=== PATIENT | male | born 1970 | race Caucasian/White ===

== ENCOUNTER 2016-05-16 18:32 | Emergency (ER) | payer SELFPAY ==
[~2016-05-16] VITALS: Ht 177.8 cm; Wt 95.3 kg
[~2016-05-16 18:32] MED LIST: NAPR500T8 PO
[2016-05-16 19:01] VITALS: BP 110/71
[2016-05-16] MEDS ORDERED: TRAMADOL 50 MG TABLET. PO ONE (19:30)
--- NOTE | 2016-05-16 19:34 | PHYS DOC ---
Past Medical History Past Medical History: No Pertinent History Past Surgical History: Appendectomy, Other Additional Past Surgical Histo: finger sx, wisdom teeth, childhood neck injury Alcohol Use: None Drug Use: None Adult General Chief Complaint Chief Complaint: LOWER EXT PAIN HPI HPI Patient is a 46 year old male presents emergency department stating that he is having right knee pain since Friday. He denies any injury or trauma. He denies twisting or turning. He states that he has increased pain about the kneecap. He denies any numbness or tingling down into his feet. He states that he has increased pain with ambulation. He has taken 2 ibuprofen for the pain and discomfort. Review of Systems Review of Systems Constitutional: Denies fever or chills [] Eyes: Denies change in visual acuity, redness, or eye pain [] HENT: Denies nasal congestion or sore throat [] Respiratory: Denies cough or shortness of breath [] Cardiovascular: No additional information not addressed in HPI [] GI: Denies abdominal pain, nausea, vomiting, bloody stools or diarrhea [] : Denies dysuria or hematuria [] Musculoskeletal: Denies back pain. C/o right knee pain and discomfort Integument: Denies rash or skin lesions [] Neurologic: Denies headache, focal weakness or sensory changes [] Current Medications Current Medications Current Medications Medications (Trade) Dose Ordered Sig/Gab Start Time Stop Time Status Last Admin Dose Admin Tramadol HCl (Ultram) 50 mg 1X ONCE 05/16/16 19:30 05/16/16 19:32 DC 05/16/16 20:04 50 MG Allergies Allergies Allergies Coded Allergies Type Severity Reaction Last Updated Verified hydromorphone Allergy Intermediate 06/15/14 Yes vancomycin Allergy Intermediate Rash 05/31/14 Yes Physical Exam Physical Exam Constitutional: Well developed, well nourished, no acute distress, non-toxic appearance. [] HENT: Normocephalic, atraumatic, bilateral external ears normal, oropharynx moist, no oral exudates, nose normal. [] Eyes: PERRLA, EOMI, conjunctiva normal, no discharge. [] Neck: Normal range of motion, no tenderness, supple, no stridor. [] Cardiovascular:Heart rate regular rhythm, no murmur [] Lungs & Thorax: Bilateral breath sounds clear to auscultation [] Skin: Warm, dry, no erythema, no rash. [] Back: No tenderness Extremities: right upper knee tenderness, no cyanosis, no clubbing, ROM intact, no edema. No redness no swelling noted. Tenderness was noted around the upper part of the kneecap. Peripheral pulses are 2+. Negative Homans sign negative Rian sign negative valgus negative Alexander. Patient with slightly decreased range of motion. Patient unable to bend knee to a 90 degree angle Neurologic: Alert and oriented X 3, normal motor function, normal sensory function, no focal deficits noted. [] Psychologic: Affect normal, judgement normal, mood normal. [] Current Patient Data Vital Signs Vital Signs Date Time Temp Pulse Resp B/P Pulse Ox O2 Delivery O2 Flow Rate FiO2 05/16/16 19:01 98.2 77 18 97 Room Air 98.2 EKG EKG [] Radiology/Procedures Radiology/Procedures [] Course & Med Decision Making Course & Med Decision Making Pertinent Labs and Imaging studies reviewed. (See chart for details) X-rays were negative for any bony abnormalities. There does appear to be an effusion noted per Dr. Baldwin. Patient will be placed on nonsteroidal anti- inflammatories with recommended patient's of Advil 800 mg every 8 hours with food stop taking few develop an upset stomach. Also recommended knee immobilizer whenever ambulating. Also recommended ice packs and elevation as much as possible. Patient will be discharged home in stable condition signs and symptoms to return back to emergency department as been provided. Patient was provided with orthopedic name and number to follow up with. Patient agrees with discharge instructions treatment regimens follow-up recommendations. Dragon Disclaimer Dragon Disclaimer This electronic medical record was generated, in whole or in part, using a voice recognition dictation system. Departure Departure Impression: Primary Impression: Right knee pain Additional Impression: Effusion, right knee Disposition: HOME, SELF-CARE Condition: STABLE Referrals: NO PCP (PCP) Patient Instructions: Knee Effusion, [id number], Knee Pain, [id number] Additional Instructions: Home to rest Advil 800 mg every 8 hours with food stop taking if you develop upset stomach Ice packs on 20 minutes and off 2 minutes Elevation as much as possible Wear the knee immobilizer whenever you are up ambulating Followup with orthopedic in 7-10 days Return to emergency department as needed for signs and symptoms that become worse. Problem Qualifiers ANA DAVIS NP May 16, 2016 19:34
--- NOTE | 2016-05-17 08:06 | RAD ---
Right knee, 3 views, 05/16/2016: History: Knee pain No fracture or dislocation is identified. There is mild degenerative change at the patellofemoral articulation. No significant joint effusion is seen. There appears to be mild subcutaneous edema anteriorly. IMPRESSION: 1. Mild degenerative change. 2. No acute bony abnormality is detected.
== END 2016-05-16 20:25 | disposition home or self-care (01) ==
LOC: ER 18:32
DX: M25.461 Effusion, right knee (principal); Z88.1 Allergy status to other antibiotic agents; Z88.5 Allergy status to narcotic agent
CPT/HCPCS: 29505; 73562; 99284-25